=== PATIENT | female | born 1960 | race Caucasian/White ===

== ENCOUNTER 2016-10-18 18:04 | Emergency (ER) | payer OTHER ==
--- NOTE | 2016-10-18 19:47 | DIAGNOSTIC IMAGING REPORT ---
PROCEDURE: XR CHEST 2 VIEW INDICATION: FEVER, initial encounter TECHNIQUE: PA and lateral view. COMPARISON: None. FINDINGS: Poor inspiration with mild bilateral atelectasis Thickening of the minor fissure. Cardiovascular structures are normal. Bony thorax is unremarkable. IMPRESSION: 1. Poor inspiration with minor bilateral atelectasis 2. Thickened right minor fissure
--- NOTE | 2016-10-18 21:43 | ED ORDER SUMMARY ---
..... Patient: ALYX MENDEZ OrderSheet [facility] VisitID: [id number] [address] [place] [address] 56y, F Registration Date/Time: 10/18/2016 ORDER SHEET Weight: 81.6 kg (stated) Allergies: Penicillins GENERAL ORDERS: Chest 2V Urgent (19:13 10/18/2016 EKoroleva P.A.-C) (Ack 19:34 LTapper) (19:36 JRomanelli R.N.) Cardiac Panel Stat (19:13 10/18/2016 EKoroleva P.A.-C) (Ack 19:34 LTapper) (20:23 JRomanelli R.N.) PTT Urgent (19:13 10/18/2016 EKoroleva P.A.-C) (Ack 19:34 LTapper) (20:23 JRomanelli R.N.) PT with INR Urgent (19:13 10/18/2016 EKoroleva P.A.-C) (Ack 19:34 LTapper) (20:23 JRomanelli R.N.) Rapid Influenza Screen (Nasal Pharyngeal) (n) Urgent (19:13 10/18/2016 EKoroleva P.A.-C) (Ack 19:34 LTapper) (20:31 JRomanelli R.N.) Lost Charge Card Clerk (Continuous) (19:16 10/18/2016 EKoroleva P.A.-C) (19:36 JRomanelli R.N.) EKG - ER Stat (19:16 10/18/2016 EKoroleva P.A.-C) (Ack 19:34 LTapper) (20:15 AMcQuoid ER Tech1) D-Dimer Urgent (20:12 10/18/2016 EKoroleva P.A.-C) (Ack 20:16 LTapper) (20:23 JRomanelli R.N.) PCT (Procalcitonin) Urgent (21:51 10/18/2016 EKoroleva P.A.-C) (21:56 AMcQuoid ER Tech1) Lactate, Serum Urgent (21:52 10/18/2016 EKoroleva P.A.-C) (Ack 21:56 AMcQuoid ER Tech1) (22:05 AMcQuoid ER Tech1) Troponin-I Urgent (22:21 10/18/2016 EKoroleva P.A.-C) (22:33 AMcQuoid ER Tech1) MEDICATION ORDERS: Lovenox Subcut 80 mg (HIGH ALERT MEDICATION, NOW) (21:30 10/18/2016 EKoroleva P.A.-C) (Ack 22:20 SRoberts R.N.) (22:33 JRomanelli R.N.) - (tamiflu 75 mg po) (21:36 10/18/2016 EKoroleva P.A.-C) (Ack 22:20 SRoberts R.N.) (22:33 JRomanelli R.N.) IV FLUIDS: Morphine IV 4 mg (HIGH ALERT MEDICATION, NOW) (19:13 10/18/2016 EKoroleva P.A.-C) (20:32 JRomanelli R.N.) IV NS : initial bolus 1000 mL (1000 mL/hr), then 100 mL/hr for X1 (NOW); Jason (19:13 10/18/2016 EKoroleva P.A.-C) (20:23 JRomanelli R.N.) Morphine IV 4 mg (HIGH ALERT MEDICATION, NOW) (22:20 10/18/2016 EKoroleva P.A.-C) (23:12 JRomanelli R.N.) ORDER SHEET NOTES: [Electronically signed by Nydia Shaffer-C (23:04 10/18/2016)] [Electronically signed by Jason Joel R.N. (23:45 10/18/2016)] [Electronically locked/signed by Jason Joel R.N. (23:45 10/18/2016)]
--- NOTE | 2016-10-18 21:43 | ED NURSING NOTES ---
Clinical Report - Nurses [facility] [address] [place] [address] 10/18/2016 18:06 Patient: ALYX MENDEZ TRIAGE Triage time 19:Oct 18 2016. Acuity: LEVEL 3. Alert. KAMARI COMA SCORE: Kamari Coma Scale: 15- eyes open spontaneously (4); best verbal response- oriented x 4 (5); best motor response- obeys commands (6). --19:17 Jason Joel R.N. Chief Complaint: FEVER and CHILLS and ((L) Anterior Rib Pain). --19:17 Jason Joel R.N. 19:24 10/18/16. BP: 144/79. HR: 106. RR: 18. Temp: 99 F. Pain level now: 07/09. --19:25 Jason Joel R.N. 19:27 10/18/16. O2 saturation: 92% on room air. --19:28 Jason Joel R.N. Weight: 81.6 kg stated. Height/Length: 62 inches Per Patient. BMI: 32.9. --19:16 Jason Joel R.N. Medications Amitriptyline HCl Oral 25 mg, at bedtime. Aspirin Oral (Tablet Chewable 81 mg) 1 tablet, daily. FLUoxetine HCl Oral 40 mg, daily. Lyrica Oral 300 mg, 2 x daily. Metoprolol Succinate ER Oral 25 mg, daily. Nitroglycerin Translingual 0.4 mg, PRN. OxyCODONE HCl Oral 10 mg, as needed. Simvastatin Oral 40 mg, at bedtime. TiZANidine HCl Oral 4 mg. --19:20 Jason Joel R.N. Allergies Penicillins. --19:24 Jason Joel R.N. History Arrived by private vehicle. Historian: patient (son). Accompanied by family. ( Fever starting 4 days ago and she fell down stairs yesterday and is now having chest pain). --19:17 Jason Joel R.N. Onset. (about 2 days ago). Treatment REED PRESS FEEDER: None. --19:25 Jason Joel R.N. SOCIAL HX: Heavy tobacco smoker (cigarette)- less than 1 pack per day. No alcohol use or drug use. No recent travel. No infectious disease exposure. ABUSE ASSESSMENT: No report of abuse. FALL RISK ASSESSMENT: Fall risk assessment completed. No fall risk identified. NUTRITIONAL RISK ASSESSMENT: The nutritional risk assessment revealed no deficiencies. FUNCTIONAL ASSESSMENT: Functional assessment: no impairments noted. LEARNING NEEDS ASSESSMENT: The learning needs assessment revealed no barriers. SKIN INTEGRITY ASSESSMENT: Skin integrity risk assessment completed. No skin integrity risk identified. --19:27 Jason Joel R.N. ( Pt states that she has been passing out and falling.). --19:28 Jason Joel R.N. SOCIAL HX: Smoker- current status unknown. --22:26 Jason Joel R.N. [place] physician [place] --22:29 Jason Joel R.N. PROBLEMS: Coronary Stent . --22:21 Jason Joel R.N. Pneumonia. Myocardial Infarction. --22:26 Jason Joel R.N. Hypertension. Back Pain. --22:28 Jason Joel R.N. ADDITIONAL SURGERIES: Back Surgery. Carpal Tunnel Surgery. Cholecystectomy. Knee Surgery. Tonsillectomy. --22:28 Jason Joel R.N. Interventions ID band on patient. To treatment room. --19:17 Jason Joel R.N. PHYSICAL ASSESSMENT To room via wheelchair. GENERAL / NEURO / PSYCH: Alert. Oriented X 4. Appears in pain. HEENT: Mucous membranes are pink. CVS: Capillary refill less than 2 seconds. Pulses within normal limits. GI / : Abdomen soft and nontender. SKIN: Skin intact. Skin is warm and dry. Normal skin turgor. --19:26 Jason Joel R.N. NURSING PROGRESS NOTES Oxygen administered by nasal cannula at [address] recording monitor, pulse oximeter and NIBP monitor placed on patient; court recording monitor- Lead II and V1; monitor alarms on. --19:36 Jason Joel R.N. 20:06. EKG was performed by a tech. --20:15 McQuoid, Krystal, ER Tech1 19:30 10/18/16. Patient gowned. Reassurance given. Patient identifiers checked. Call light placed in reach. Side rails up x 2. Bed placed in lowest position. Brakes of bed on. Patient ready for evaluation- chart flagged and ED physician notified. --20:46 Jason Joel R.N. 19:57 10/18/2016 Site #1 started via IV in the left forearm with an 22g angiocath, with aseptic technique and good blood return; one attempt. Blood drawn: rainbow set. Labeled in the presence of the patient and sent to the lab. Saline lock flushed with 10 mL saline. --20:22 Jason Joel R.N. 19:57 10/18/2016 Started bag #1 1000 mL IV Fluids IV NS (Saline); at 1000 mL/hr over 60 minute(s) via site #1 via IV pump. Allergies verified and confirmed 5 rights. IV patency established. IV site checked: no pain, redness, or swelling. IV flushed thoroughly pre- and post-medication administration. --20:23 Jason Joel R.N. 20:22 10/18/2016 Morphine IVP 4 mg given over 2 minute(s) via site #1. Allergies verified, confirmed 5 rights and sedative warning given to the patient. IV patency established. IV site checked: no pain, redness, or swelling. IV flushed thoroughly pre- and post-medication administration. IVP given by RN. --20:32 Jason Joel R.N. 20:46 10/18/16. BP: 136/74. HR: 94. RR: 19. O2 saturation: 96% on nasal cannula at 2 liters/minute. --20:48 Jason Joel R.N. 20:53 10/18/2016 IV Fluids IV NS Bag Change: bag #1 infused. Total amount infused: 1000. STARTED bag #2 (1000 mL) at 100 mL/hr via IV pump. Confirmed 5 rights. IV patency established. IV site checked: no pain, redness, or swelling. IV flushed thoroughly. --20:53 Jason Joel R.N. 21:42 10/18/16. O2 saturation: 88% on room air. --21:42 Jason Joel R.N. 22:23 10/18/2016 Tamiflu * PO 75 mg --22:33 Jason Joel R.N. 22:28 10/18/2016 Lovenox * Subcutaneous 81mg --22:33 Jason Joel R.N. 23:05 10/18/2016 Morphine IVP 4 mg given over 2 minute(s) via site #1. Allergies verified, confirmed 5 rights and sedative warning given to the patient. IV patency established. IV site checked: no pain, redness, or swelling. IV flushed thoroughly pre- and post-medication administration. IVP given by RN. --23:12 Jason Joel R.N. 21:45 10/18/16. BP: 124/66. HR: 94. RR: 17. O2 saturation: 97% on nasal cannula at 2 liters/minute. Pain level now: 02/06. --23:37 Jason Joel R.N. 22:15 10/18/16. BP: 156/77. HR: 91. RR: 18. O2 saturation: 97% on room air. Pain level now: 05/09. --23:38 Jason Joel R.N. 22:30 10/18/16. BP: 141/80. HR: 93. RR: 19. O2 saturation: 98%. Pain level now: 05/09. --23:40 Jason Joel R.N. 23:00 10/18/2016 Site #[address] upon transfer; patent, no pain and no signs of infection or infiltration; flushes easily. --23:44 Jason Joel R.N. 23:00 10/18/2016 IV Fluids IV NS Continued: upon transfer at the rate of 100 mL/hr. 800 mL remaining bag #2. IV patency established. IV site checked: no pain, redness, or swelling. IV flushed thoroughly. --23:42 Jason Joel R.N. DISPOSITION / DISCHARGE 23:00 10/18/16. BP: 151/95. HR: 95 (regular). RR: 18. O2 saturation: 99% on nasal cannula at 2 liters/minute. Temp: 99.3 F (oral). Pain level now: 02/06. Additional comments: (L) Rib Pain. --23:31 Jason Joel R.N. Departure time: 2300. --23:31 Jason Joel R.N. 23:00. No learning barriers present. Reviewed medication(s) (reviewed with EMS). Transferred to [facility]. Transported via ambulance by transport team with IV and O2. Report was given to a nurse via a phone call. Report included patient's care, treatment, medications, reviewed medication reconcilliation, and condition (including any recent changes or anticipated changes). All questions were answered. Report was acknowledged and care was transferred. (SHWETA Maddox). Patient's personal items; items were placed in belongings bag and transported with the patient. --23:34 Jason Joel R.N. Locked/Released at 10/18/2016 23:45 by Jason Joel R.N.
--- NOTE | 2016-10-18 21:43 | ED CLINICAL REPORT ---
Clinical Report - Physicians/Mid Levels [facility] [address] [place] [address] 10/18/2016 18:06 Patient: ALYX MENDEZ Time Seen: 1912. Arrived- By private vehicle. Historian- patient. HISTORY OF PRESENT ILLNESS Chief Complaint: COUGH and FEVER. This started 4days and is still present. The illness is described as moderate. The patient has had sputum production, a cough, difficulty breathing, chills and muscle aches. She has had chest pain. Additional history - The patient has had contact with a sick individual. (Patient reports he was cough over the last 4 days, is weak, lightheadedness and dizzy upon standing. Patient reports falling over the last few days, fell yesterday onto her chest, down stairs. sHe denies loss of consciousness. Reports has had near syncope episodes. Patient reports history of LA, stent placed about 2-3 years ago Reports sick contact her . Also here in the emergency department.). REVIEW OF SYSTEMS No headache, vomiting, diarrhea, hay fever or pedal edema. No calf pain, skin rash or joint pain. All systems otherwise negative, except as recorded above. PAST HISTORY Chronic Back pain. Problems: Hypertension. Back Pain. Pneumonia. Myocardial Infarction. Coronary Stent . Additional Surgeries: Back Surgery. Carpal Tunnel Surgery. Cholecystectomy. Knee Surgery. Tonsillectomy. Medications: Amitriptyline HCl Oral 25 mg, at bedtime. Aspirin Oral (Tablet Chewable 81 mg) 1 tablet, daily. FLUoxetine HCl Oral 40 mg, daily. Lyrica Oral 300 mg, 2 x daily. Metoprolol Succinate ER Oral 25 mg, daily. Nitroglycerin Translingual 0.4 mg, PRN. OxyCODONE HCl Oral 10 mg, as needed. Simvastatin Oral 40 mg, at bedtime. TiZANidine HCl Oral 4 mg. Allergies: Penicillins. SOCIAL HISTORY Smoker- current status unknown. No alcohol use or drug use. ADDITIONAL NOTES The nursing notes have been reviewed. PHYSICAL EXAM Vital Signs: 10/18/2016 19:27 O2 saturation: 92%. 10/18/2016 19:24 BP: 144/79. HR: 106. RR: 18. Temp: 99 F. Pain level now: 07/09. Appearance: Alert. Anxious. Appears to be in pain. Patient in apparent distress. ENT: Nose normal. Pharynx normal. Uvula midline. Neck: Normal inspection. CVS: Tachycardia. Heart sounds normal. Pulses normal. Respiratory: No respiratory distress. Breath sounds normal. No retractions, splinting or wheezes. anterior left chest tendernss, no ecchymosis. Abdomen: Soft. Back: Normal inspection. No CVA tenderness. Skin: Skin warm. Normal skin color. No rash. Neuro: Oriented X 3. No motor deficit. No sensory deficit. LABS, X-RAYS, AND EKG EKG: EKG time: (2005). No acute process. No acute ischemia. Rate: 99. Normal P waves. Normal DOROTHEA. Normal QRS complex. Normal axis. Normal ST and T waves and QT. The study has been interpreted contemporaneously. The EKG appears to be a good tracing. Chest X-ray: (IMPRESSION: 1. Poor inspiration with minor bilateral atelectasis 2. Thickened right minor fissure Electronically Final signed by:Adam Lozada MD 10/18/2016 7:47:29 PM). Laboratory Tests: CBC w Diff: (BRIAN: 10/18/2016 19:35) ( MsgRcvd 10/18/2016 19:57) Final results Test Result Flag Units (Reference) WHITE BLOOD COUNT 6.8 K/uL (4.5-11.5) RED BLOOD COUNT 3.96 L M/uL (4.00-5.20) HEMOGLOBIN 11.9 L gm/dL (12.0-16.0) HEMATOCRIT 36.2 % (36.0-46.0) MEAN CELL VOLUME 92 fL (80-100) MEAN CORPUSCULAR HGB 30 pg (26-34) MEAN CORPUSCULAR HGB CONC 33 g/dL (31-37) RED CELL DISTRIBUTION WIDTH 12.3 % (11.6-14.8) PLATELET COUNT 198 K/uL (150-400) NEUTROPHIL % 63.8 % (50-75) LYMPH % 21.3 L % (25-40) MONO % 14.4 H % (3-14) EOSINOPHIL % 0 % (0-4) BASOPHIL % 0.5 % (0-2) [id number]: (BRIAN: 10/18/2016 20:15) ( [facility] 10/18/2016 20:50) Final results Test Result Flag Units (Reference) D-DIMER QUANTITATIVE 8.86 *H ug/mLFEU (0.27-0.52) CRITICAL RESULTS CALLEDCalled to Lance MONIQUE 10/18/162048Were 2 patient identifiers used? YWas the result read back? YThe primary value of this quantitative assay relates toits negative predictive value (i.e. exclusion) of pulmonaryembolism/deep vein thrombosis/DIC.Elevated levels of d-dimer may also occur with:, age, cancer, inflammation, liver disease,post-op, infection, hematoma, coronary disease, peripheralarteriopathy, bleeding disorders and thrombolytic treatment.Results should be correlated with other clinical andradiological data.Testing Methodology: Latex Immunoassay PT with INR: (BRIAN: 10/18/2016 19:35) ( [facility] 10/18/2016 20:11) Final results Test Result Flag Units (Reference) INR 0.9 (0.8-1.2) Low Intensity Therapy: INR 1.5-2.0 PT range 18.5-23.1Mod.Intensity Therapy: INR 2.0-3.0 PT range 23.1-31.5High Intensity Therapy: INR 2.5-3.5 PT range 27.4-35.5High Intensity Therapy 2: INR 3.0-4.0 PT range 31.5-39.3 APTT 30 SECONDS (24-34) Troponin-I: (BRIAN: 10/18/2016 22:00) ( [facility] 10/18/2016 22:40) Final results Test Result Flag Units (Reference) TROPONIN I 0.10 ng/mL (0.00-1.5) TROPONIN REFERENCE RANGE:<0.1 NEGATIVE0.1-1.5 INDETERMINANT>1.5 POSITIVE Lactate, Serum: (BRIAN: 10/18/2016 22:00) ( MsgRcvd 10/18/2016 22:35) Final results Test Result Flag Units (Reference) LACTIC ACID 0.7 mmol/L (0.4-2.0) CHEM 13 PANEL: (BRIAN: 10/18/2016 19:35) ( MsgRcvd 10/18/2016 20:53) Final results Test Result Flag Units (Reference) GLUCOSE 130 H mg/dL (70-110) BUN 31 H mg/dL (7-18) CREATININE 2.1 H mg/dL (0.6-1.3) Estimated GFR 25.89 mL/min Estimated GFR- 31.38 mL/min Note: Persistent reduction over 3 months in eGFR<60 mL/min/1.73 m2 defines CKD. Patients with eGFR values>=60 mL/min/1.73 m2 may also have CKD if evidence ofpersistent proteinuria. Additional information may be foundat www.kidney.org. SODIUM 135 L mmol/L (136-145) POTASSIUM 4.2 mmol/L (3.5-5.1) CHLORIDE 97 L mmol/L (98-107) CARBON DIOXIDE 26 mmol/L (21-32) CALCIUM 8.4 L mg/dL (8.5-10.1) TOTAL PROTEIN 7.1 g/dL (6.4-8.2) ALBUMIN 3.5 g/dL (3.3-5.0) BILIRUBIN, TOTAL 0.3 mg/dL (0.0-1.0) ALKALINE PHOSPHATASE 63 U/L (46-116) AST (SGOT) 44 H U/L (15-37) ALT (SGPT) 29 U/L (12-78) CPK 376 H U/L (24-260) MAGNESIUM 2.0 mg/dL (1.8-2.4) TROPONIN I 0.11 ng/mL (0.00-1.5) TROPONIN REFERENCE RANGE:<0.1 NEGATIVE0.1-1.5 INDETERMINANT>1.5 POSITIVE CK-MB 1.6 ng/mL (0.5-3.2) %CKMB 0.4 % (0.0-4.0) Rapid Influenza Screen: (BRIAN: 10/18/2016 20:20) ( MsgRcvd 10/18/2016 21:09) Final results SPECIMEN DESCRIPTION: N Test Result Flag Units (Reference) RAPID INFLUENZA SCREEN CALLED TO: DAVIN -- DATE: 10/18/16 INFLUENZA A: POSITIVE SCREEN FOR INFLUENZA A INFLUENZA B: NEGATIVE SCREEN FOR INFLUENZA B . PROGRESS AND PROCEDURES Course of Care: 88% RA at 21:[address] Cortez, ER, who recommends admission. Discussed case with hospitalist, who reports note telemetry bed, and we'll attempt to find placement otherwise. Lovenox 2 patient, as elevated d-dimer, and O2 saturation 88% on room air. 95% on 2 L. Positive influenza for patient as well. Chest x-ray otherwise unremarkable. Indeterminate first troponin 0.11, with no EKG changes, patient with second troponin that is 0.1. Discussed case with DR. [facility], who accepts pt for admisison. 10/18/2016 21:42 O2 saturation: 88%. 10/18/2016 20:46 BP: 136/74. HR: 94. RR: 19. O2 saturation: 96%. Patient is stable. Physical exam findings are improved. Symptoms better. Patient/family counseled. Disposition: Transferred. CLINICAL IMPRESSION Hypertension. Influenza Acute Renal Failure Elevated D. Dimer Dehydration Chest Wall contusion Chronic Low Back Pain. (Electronically signed by Nydia Shaffer P.A.-C 10/18/2016 23:04)
--- NOTE | 2016-10-18 21:43 | ED NURSING NOTES ---
Clinical Report - Nurses [facility] [address] [place] [address] 10/18/2016 18:06 Patient: ALYX MENDEZ TRIAGE Triage time 19:Oct 18 2016. Acuity: LEVEL 3. Alert. KAMARI COMA SCORE: Kamari Coma Scale: 15- eyes open spontaneously (4); best verbal response- oriented x 4 (5); best motor response- obeys commands (6). --19:17 Jason Joel R.N. Chief Complaint: FEVER and CHILLS and ((L) Anterior Rib Pain). --19:17 Jason Joel R.N. 19:24 10/18/16. BP: 144/79. HR: 106. RR: 18. Temp: 99 F. Pain level now: 07/09. --19:25 Jason Joel R.N. 19:27 10/18/16. O2 saturation: 92% on room air. --19:28 Jason Joel R.N. Weight: 81.6 kg stated. Height/Length: 62 inches Per Patient. BMI: 32.9. --19:16 Jason Joel R.N. Medications Amitriptyline HCl Oral 25 mg, at bedtime. Aspirin Oral (Tablet Chewable 81 mg) 1 tablet, daily. FLUoxetine HCl Oral 40 mg, daily. Lyrica Oral 300 mg, 2 x daily. Metoprolol Succinate ER Oral 25 mg, daily. Nitroglycerin Translingual 0.4 mg, PRN. OxyCODONE HCl Oral 10 mg, as needed. Simvastatin Oral 40 mg, at bedtime. TiZANidine HCl Oral 4 mg. --19:20 Jason Joel R.N. Allergies Penicillins. --19:24 Jason Joel R.N. History Arrived by private vehicle. Historian: patient (son). Accompanied by family. ( Fever starting 4 days ago and she fell down stairs yesterday and is now having chest pain). --19:17 Jason Joel R.N. Onset. (about 2 days ago). 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 --19:25 Jason Joel R.N. SOCIAL HX: Heavy tobacco smoker (cigarette)- less than 1 pack per day. No alcohol use or drug use. No recent travel. No infectious disease exposure. ABUSE ASSESSMENT: No report of abuse. FALL RISK ASSESSMENT: Fall risk assessment completed. No fall risk identified. NUTRITIONAL RISK ASSESSMENT: The nutritional risk assessment revealed no deficiencies. FUNCTIONAL ASSESSMENT: Functional assessment: no impairments noted. LEARNING NEEDS ASSESSMENT: The learning needs assessment revealed no barriers. SKIN INTEGRITY ASSESSMENT: Skin integrity risk assessment completed. No skin integrity risk identified. --19:27 Jason Joel R.N. ( Pt states that she has been passing out and falling.). --19:28 Jason Joel R.N. SOCIAL HX: Smoker- current status unknown. --22:26 Jason Joel R.N. Primary physician ([place] --22:29 Jason Joel R.N. PROBLEMS: Coronary Stent . --22:21 Jason Joel R.N. Pneumonia. Myocardial Infarction. --22:26 Jason Joel R.N. Hypertension. Back Pain. --22:28 Jason Joel R.N. ADDITIONAL SURGERIES: Back Surgery. Carpal Tunnel Surgery. Cholecystectomy. Knee Surgery. Tonsillectomy. --22:28 Jason Joel R.N. Interventions ID band on patient. To treatment room. --19:17 Jason Joel R.N. PHYSICAL ASSESSMENT To room via wheelchair. GENERAL / NEURO / PSYCH: Alert. Oriented X 4. Appears in pain. HEENT: Mucous membranes are pink. CVS: Capillary refill less than 2 seconds. Pulses within normal limits. GI / : Abdomen soft and nontender. SKIN: Skin intact. Skin is warm and dry. Normal skin turgor. --19:26 Jason Joel R.N. NURSING PROGRESS NOTES Oxygen administered by nasal cannula at 2 liters. engine monitor, pulse oximeter and NIBP monitor placed on patient; cardiac specialist- Lead II and V1; monitor alarms on. --19:36 Jason Joel R.N. 20:06. EKG was performed by a tech. --20:15 McQuoid, Krystal, ER Tech1 19:30 10/18/16. Patient gowned. Reassurance given. Patient identifiers checked. Call light placed in reach. Side rails up x 2. Bed placed in lowest position. Brakes of bed on. Patient ready for evaluation- chart flagged and ED physician notified. --20:46 Jason Joel R.N. 19:57 10/18/2016 Site #1 started via IV in the left forearm with an 22g angiocath, with aseptic technique and good blood return; one attempt. Blood drawn: rainbow set. Labeled in the presence of the patient and sent to the lab. Saline lock flushed with 10 mL saline. --20:22 Jason Joel R.N. 19:57 10/18/2016 Started bag #1 1000 mL IV Fluids IV NS (Saline); at 1000 mL/hr over 60 minute(s) via site #1 via IV pump. Allergies verified and confirmed 5 rights. IV patency established. IV site checked: no pain, redness, or swelling. IV flushed thoroughly pre- and post-medication administration. --20:23 Jason Joel R.N. 20:22 10/18/2016 Morphine IVP 4 mg given over 2 minute(s) via site #1. Allergies verified, confirmed 5 rights and sedative warning given to the patient. IV patency established. IV site checked: no pain, redness, or swelling. IV flushed thoroughly pre- and post-medication administration. IVP given by RN. --20:32 Jason Joel R.N. 20:46 10/18/16. BP: 136/74. HR: 94. RR: 19. O2 saturation: 96% on nasal cannula at 2 liters/minute. --20:48 Jason Joel R.N. 20:53 10/18/2016 IV Fluids IV NS Bag Change: bag #1 infused. Total amount infused: 1000. STARTED bag #2 (1000 mL) at 100 mL/hr via IV pump. Confirmed 5 rights. IV patency established. IV site checked: no pain, redness, or swelling. IV flushed thoroughly. --20:53 Jason Joel R.N. 21:42 10/18/16. O2 saturation: 88% on room air. --21:42 Jason Joel R.N. 22:23 10/18/2016 Tamiflu * PO 75 mg --22:33 Jason oJel R.N. 22:28 10/18/2016 Lovenox * Subcutaneous 81mg --22:33 Jason Joel R.N. 23:05 10/18/2016 Morphine IVP 4 mg given over 2 minute(s) via site #1. Allergies verified, confirmed 5 rights and sedative warning given to the patient. IV patency established. IV site checked: no pain, redness, or swelling. IV flushed thoroughly pre- and post-medication administration. IVP given by RN. --23:12 Jason Joel R.N. 21:45 10/18/16. BP: 124/66. HR: 94. RR: 17. O2 saturation: 97% on nasal cannula at 2 liters/minute. Pain level now: 02/06. --23:37 Jason Joel R.N. 22:15 10/18/16. BP: 156/77. HR: 91. RR: 18. O2 saturation: 97% on room air. Pain level now: 05/09. --23:38 Jason Joel R.N. 22:30 10/18/16. BP: 141/80. HR: 93. RR: 19. O2 saturation: 98%. Pain level now: 05/09. --23:40 Jason Joel R.N. 23:00 10/18/2016 Site #[address] upon transfer; patent, no pain and no signs of infection or infiltration; flushes easily. --23:44 Jason Joel R.N. 23:00 10/18/2016 IV Fluids IV NS Continued: upon transfer at the rate of 100 mL/hr. 800 mL remaining bag #2. IV patency established. IV site checked: no pain, redness, or swelling. IV flushed thoroughly. --23:42 Jason Joel R.N. DISPOSITION / DISCHARGE 23:00 10/18/16. BP: 151/95. HR: 95 (regular). RR: 18. O2 saturation: 99% on nasal cannula at 2 liters/minute. Temp: 99.3 F (oral). Pain level now: 02/06. Additional comments: (L) Rib Pain. --23:31 Jason Joel R.N. Departure time: 2300. --23:31 Jason Joel R.N. 23:00. No learning barriers present. Reviewed medication(s) (reviewed with EMS). Transferred to [facility]. Transported via ambulance by transport team with IV and O2. Report was given to a nurse via a phone call. Report included patient's care, treatment, medications, reviewed medication reconcilliation, and condition (including any recent changes or anticipated changes). All questions were answered. Report was acknowledged and care was transferred. (SHWETA Maddox). Patient's personal items; items were placed in belongings bag and transported with the patient. --23:34 Jason Joel R.N. Locked/Released at 10/18/2016 23:45 by Jason Joel R.N.
--- NOTE | 2016-10-18 21:43 | ED ORDER SUMMARY ---
..... Patient: ALYX MENDEZ OrderSheet [facility] VisitID: [id number] [address] [place] [address] 56y, F Registration Date/Time: 10/18/2016 ORDER SHEET Weight: 81.6 kg (stated) Allergies: Penicillins GENERAL ORDERS: Chest 2V Urgent (19:13 10/18/2016 EKoroleva P.A.-C) (Ack 19:34 LTapper) (19:36 JRomanelli R.N.) Cardiac Panel Stat (19:13 10/18/2016 EKoroleva P.A.-C) (Ack 19:34 LTapper) (20:23 JRomanelli R.N.) PTT Urgent (19:13 10/18/2016 EKoroleva P.A.-C) (Ack 19:34 LTapper) (20:23 JRomanelli R.N.) PT with INR Urgent (19:13 10/18/2016 EKoroleva P.A.-C) (Ack 19:34 LTapper) (20:23 JRomanelli R.N.) Rapid Influenza Screen (Nasal Pharyngeal) (n) Urgent (19:13 10/18/2016 EKoroleva P.A.-C) (Ack 19:34 LTapper) (20:31 JRomanelli R.N.) Yarn Mercerizer Operator (Continuous) (19:16 10/18/2016 EKoroleva P.A.-C) (19:36 JRomanelli R.N.) EKG - ER Stat (19:16 10/18/2016 EKoroleva P.A.-C) (Ack 19:34 LTapper) (20:15 AMcQuoid ER Tech1) D-Dimer Urgent (20:12 10/18/2016 EKoroleva P.A.-C) (Ack 20:16 LTapper) (20:23 JRomanelli R.N.) PCT (Procalcitonin) Urgent (21:51 10/18/2016 EKoroleva P.A.-C) (21:56 AMcQuoid ER Tech1) Lactate, Serum Urgent (21:52 10/18/2016 EKoroleva P.A.-C) (Ack 21:56 AMcQuoid ER Tech1) (22:05 AMcQuoid ER Tech1) Troponin-I Urgent (22:21 10/18/2016 EKoroleva P.A.-C) (22:33 AMcQuoid ER Tech1) MEDICATION ORDERS: Lovenox Subcut 80 mg (HIGH ALERT MEDICATION, NOW) (21:30 10/18/2016 EKoroleva P.A.-C) (Ack 22:20 SRoberts R.N.) (22:33 JRomanelli R.N.) - (tamiflu 75 mg po) (21:36 10/18/2016 EKoroleva P.A.-C) (Ack 22:20 SRoberts R.N.) (22:33 JRomanelli R.N.) IV FLUIDS: Morphine IV 4 mg (HIGH ALERT MEDICATION, NOW) (19:13 10/18/2016 EKoroleva P.A.-C) (20:32 JRomanelli R.N.) IV NS : initial bolus 1000 mL (1000 mL/hr), then 100 mL/hr for X1 (NOW); Jason (19:13 10/18/2016 EKoroleva P.A.-C) (20:23 JRomanelli R.N.) Morphine IV 4 mg (HIGH ALERT MEDICATION, NOW) (22:20 10/18/2016 EKoroleva P.A.-C) (23:12 JRomanelli R.N.) ORDER SHEET NOTES: [Electronically signed by Nydia Shaffer-C (23:04 10/18/2016)] [Electronically signed by Jason Joel R.N. (23:45 10/18/2016)] [Electronically locked/signed by Jason Joel R.N. (23:45 10/18/2016)]
--- NOTE | 2016-10-18 21:43 | ED CLINICAL REPORT ---
Clinical Report - Physicians/Mid Levels [facility] [address] [place] [address] 10/18/2016 18:06 Patient: ALYX MENDEZ Time Seen: 1912. Arrived- By private vehicle. Historian- patient. HISTORY OF PRESENT ILLNESS Chief Complaint: COUGH and FEVER. This started 4days and is still present. The illness is described as moderate. The patient has had sputum production, a cough, difficulty breathing, chills and muscle aches. She has had chest pain. Additional history - The patient has had contact with a sick individual. (Patient reports he was cough over the last 4 days, is weak, lightheadedness and dizzy upon standing. Patient reports falling over the last few days, fell yesterday onto her chest, down stairs. sHe denies loss of consciousness. Reports has had near syncope episodes. Patient reports history of MA, stent placed about 2-3 years ago Reports sick contact her . Also here in the emergency department.). REVIEW OF SYSTEMS No headache, vomiting, diarrhea, hay fever or pedal edema. No calf pain, skin rash or joint pain. All systems otherwise negative, except as recorded above. PAST HISTORY Chronic Back pain. Problems: Hypertension. Back Pain. Pneumonia. Myocardial Infarction. Coronary Stent . Additional Surgeries: Back Surgery. Carpal Tunnel Surgery. Cholecystectomy. Knee Surgery. Tonsillectomy. Medications: Amitriptyline HCl Oral 25 mg, at bedtime. Aspirin Oral (Tablet Chewable 81 mg) 1 tablet, daily. FLUoxetine HCl Oral 40 mg, daily. Lyrica Oral 300 mg, 2 x daily. Metoprolol Succinate ER Oral 25 mg, daily. Nitroglycerin Translingual 0.4 mg, PRN. OxyCODONE HCl Oral 10 mg, as needed. Simvastatin Oral 40 mg, at bedtime. TiZANidine HCl Oral 4 mg. Allergies: Penicillins. SOCIAL HISTORY Smoker- current status unknown. No alcohol use or drug use. ADDITIONAL NOTES The nursing notes have been reviewed. PHYSICAL EXAM Vital Signs: 10/18/2016 19:27 O2 saturation: 92%. 10/18/2016 19:24 BP: 144/79. HR: 106. RR: 18. Temp: 99 F. Pain level now: 07/09. Appearance: Alert. Anxious. Appears to be in pain. Patient in apparent distress. ENT: Nose normal. Pharynx normal. Uvula midline. Neck: Normal inspection. CVS: Tachycardia. Heart sounds normal. Pulses normal. Respiratory: No respiratory distress. Breath sounds normal. No retractions, splinting or wheezes. anterior left chest tendernss, no ecchymosis. Abdomen: Soft. Back: Normal inspection. No CVA tenderness. Skin: Skin warm. Normal skin color. No rash. Neuro: Oriented X 3. No motor deficit. No sensory deficit. LABS, X-RAYS, AND EKG EKG: EKG time: (2005). No acute process. No acute ischemia. Rate: 99. Normal P waves. Normal DOROTHEA. Normal QRS complex. Normal axis. Normal ST and T waves and QT. The study has been interpreted contemporaneously. The EKG appears to be a good tracing. Chest X-ray: (IMPRESSION: 1. Poor inspiration with minor bilateral atelectasis 2. Thickened right minor fissure Electronically Final signed by:Adam Lozada MD 10/18/2016 7:47:29 PM). Laboratory Tests: CBC w Diff: (BRIAN: 10/18/2016 19:35) ( MsgRcvd 10/18/2016 19:57) Final results Test Result Flag Units (Reference) WHITE BLOOD COUNT 6.8 K/uL (4.5-11.5) RED BLOOD COUNT 3.96 L M/uL (4.00-5.20) HEMOGLOBIN 11.9 L gm/dL (12.0-16.0) HEMATOCRIT 36.2 % (36.0-46.0) MEAN CELL VOLUME 92 fL (80-100) MEAN CORPUSCULAR HGB 30 pg (26-34) MEAN CORPUSCULAR HGB CONC 33 g/dL (31-37) RED CELL DISTRIBUTION WIDTH 12.3 % (11.6-14.8) PLATELET COUNT 198 K/uL (150-400) NEUTROPHIL % 63.8 % (50-75) LYMPH % 21.3 L % (25-40) MONO % 14.4 H % (3-14) EOSINOPHIL % 0 % (0-4) BASOPHIL % 0.5 % (0-2) [id number]: (BRIAN: 10/18/2016 20:15) ( [facility] 10/18/2016 20:50) Final results Test Result Flag Units (Reference) D-DIMER QUANTITATIVE 8.86 *H ug/mLFEU (0.27-0.52) CRITICAL RESULTS CALLEDCalled to Lance MONIQUE 10/18/162048Were 2 patient identifiers used? YWas the result read back? YThe primary value of this quantitative assay relates toits negative predictive value (i.e. exclusion) of pulmonaryembolism/deep vein thrombosis/DIC.Elevated levels of d-dimer may also occur with:, age, cancer, inflammation, liver disease,post-op, infection, hematoma, coronary disease, peripheralarteriopathy, bleeding disorders and thrombolytic treatment.Results should be correlated with other clinical andradiological data.Testing Methodology: Latex Immunoassay PT with INR: (BRIAN: 10/18/2016 19:35) ( [facility] 10/18/2016 20:11) Final results Test Result Flag Units (Reference) INR 0.9 (0.8-1.2) Low Intensity Therapy: INR 1.5-2.0 PT range 18.5-23.1Mod.Intensity Therapy: INR 2.0-3.0 PT range 23.1-31.5High Intensity Therapy: INR 2.5-3.5 PT range 27.4-35.5High Intensity Therapy 2: INR 3.0-4.0 PT range 31.5-39.3 APTT 30 SECONDS (24-34) Troponin-I: (BRIAN: 10/18/2016 22:00) ( [facility] 10/18/2016 22:40) Final results Test Result Flag Units (Reference) TROPONIN I 0.10 ng/mL (0.00-1.5) TROPONIN REFERENCE RANGE:<0.1 NEGATIVE0.1-1.5 INDETERMINANT>1.5 POSITIVE Lactate, Serum: (BRIAN: 10/18/2016 22:00) ( MsgRcvd 10/18/2016 22:35) Final results Test Result Flag Units (Reference) LACTIC ACID 0.7 mmol/L (0.4-2.0) CHEM 13 PANEL: (BRIAN: 10/18/2016 19:35) ( MsgRcvd 10/18/2016 20:53) Final results Test Result Flag Units (Reference) GLUCOSE 130 H mg/dL (70-110) BUN 31 H mg/dL (7-18) CREATININE 2.1 H mg/dL (0.6-1.3) Estimated GFR 25.89 mL/min Estimated GFR- 31.38 mL/min Note: Persistent reduction over 3 months in eGFR<60 mL/min/1.73 m2 defines CKD. Patients with eGFR values>=60 mL/min/1.73 m2 may also have CKD if evidence ofpersistent proteinuria. Additional information may be foundat www.kidney.org. SODIUM 135 L mmol/L (136-145) POTASSIUM 4.2 mmol/L (3.5-5.1) CHLORIDE 97 L mmol/L (98-107) CARBON DIOXIDE 26 mmol/L (21-32) CALCIUM 8.4 L mg/dL (8.5-10.1) TOTAL PROTEIN 7.1 g/dL (6.4-8.2) ALBUMIN 3.5 g/dL (3.3-5.0) BILIRUBIN, TOTAL 0.3 mg/dL (0.0-1.0) ALKALINE PHOSPHATASE 63 U/L (46-116) AST (SGOT) 44 H U/L (15-37) ALT (SGPT) 29 U/L (12-78) CPK 376 H U/L (24-260) MAGNESIUM 2.0 mg/dL (1.8-2.4) TROPONIN I 0.11 ng/mL (0.00-1.5) TROPONIN REFERENCE RANGE:<0.1 NEGATIVE0.1-1.5 INDETERMINANT>1.5 POSITIVE CK-MB 1.6 ng/mL (0.5-3.2) %CKMB 0.4 % (0.0-4.0) Rapid Influenza Screen: (BRIAN: 10/18/2016 20:20) ( MsgRcvd 10/18/2016 21:09) Final results SPECIMEN DESCRIPTION: N Test Result Flag Units (Reference) RAPID INFLUENZA SCREEN CALLED TO: DAVIN -- DATE: 10/18/16 INFLUENZA A: POSITIVE SCREEN FOR INFLUENZA A INFLUENZA B: NEGATIVE SCREEN FOR INFLUENZA B . PROGRESS AND PROCEDURES Course of Care: 88% RA at 21:[address] Cortez, ER, who recommends admission. Discussed case with hospitalist, who reports note telemetry bed, and we'll attempt to find placement otherwise. Lovenox 2 patient, as elevated d-dimer, and O2 saturation 88% on room air. 95% on 2 L. Positive influenza for patient as well. Chest x-ray otherwise unremarkable. Indeterminate first troponin 0.11, with no EKG changes, patient with second troponin that is 0.1. Discussed case with DR. Hyde [facility], who accepts pt for admisison. 10/18/2016 21:42 O2 saturation: 88%. 10/18/2016 20:46 BP: 136/74. HR: 94. RR: 19. O2 saturation: 96%. Patient is stable. Physical exam findings are improved. Symptoms better. Patient/family counseled. Disposition: Transferred. CLINICAL IMPRESSION Hypertension. Influenza Acute Renal Failure Elevated D. Dimer Dehydration Chest Wall contusion Chronic Low Back Pain. (Electronically signed by Nydia Shaffer P.A.-C 10/18/2016 23:04)
--- NOTE | 2016-10-18 23:45 | ED DISCHARGE INSTRUCTIONS ---
Patient: ALYX MENDEZ General Instructions [facility] VisitID: [id number] [address] [place] [address] 56y, F Registration Date/Time: 10/18/2016 Hypertension. Influenza Acute Renal Failure Elevated D. Dimer Dehydration Chest Wall contusion Chronic Low Back Pain. (Electronically signed by Nydia Shaffer P.A.-C 10/18/2016 23:04)
--- NOTE | 2016-10-18 23:45 | ED DISCHARGE INSTRUCTIONS ---
Patient: ALYX MENDEZ General Instructions [facility] VisitID: [id number] [address] [place] [address] 56y, F Registration Date/Time: 10/18/2016 Hypertension. Influenza Acute Renal Failure Elevated D. Dimer Dehydration Chest Wall contusion Chronic Low Back Pain. (Electronically signed by Nydia Shaffer P.A.-C 10/18/2016 23:04)
--- NOTE | 2016-10-18 23:45 | ED MED RECONCILIATION SUMMARY ---
Patient: ALYX MENDEZ Medication Reconciliation Report [facility] VisitID: [id number] [address] [place] [address] 56y, F Registration Date/Time: 10/18/2016 Weight: 81.6 kg Height/Length: 62 in. BMI: 32.9 ALLERGIES: Penicillins The patient's Home Medications are listed below: THE FOLLOWING MEDICATIONS NEED TO BE RECONCILED: Amitriptyline HCl Oral 25 mg, at bedtime Aspirin Oral (81 mg) 1 tablet, daily FLUoxetine HCl Oral 40 mg, daily Lyrica Oral 300 mg, 2 x daily Metoprolol Succinate ER Oral 25 mg, daily Nitroglycerin Translingual 0.4 mg, PRN OxyCODONE HCl Oral 10 mg Simvastatin Oral 40 mg, at bedtime TiZANidine HCl Oral 4 mg The source(s) of the original Home Medication information: Not obtained. The following Medications were given to the patient in the Emergency Department: IV NS IV Fluids bolus 0, then 1000 mL/hr, administered: 10/18/2016 7:57:00 PM Morphine [IVP] IVP 4 mg, administered: 10/18/2016 8:22:00 PM Tamiflu PO 75 mg, administered: 10/18/2016 10:23:00 PM Lovenox Subcutaneous 81mg, administered: 10/18/2016 10:28:00 PM Morphine [IVP] IVP 4 mg, administered: 10/18/2016 11:05:00 PM The following Medications were prescribed to the patient: None.
--- NOTE | 2016-10-18 23:45 | ED MAR SUMMARY ---
..... Medication Administration Record [facility] [address] [place] [address] Patient: ALYX MENDEZ Visit ID: [id number] 56y, F Weight: 81.6 kg Height/Length: 62 in BMI: 32.9 ALLERGIES: Penicillins Start 19:57 10/18/2016 Jason Joel R.N., Continued Upon Transfer 23:00 10/18/2016 Jason Joel R.N. Medication Administered: IV NS (SALINE), Dose: IV Fluids over 60 minute(s), Rate: 1000 mL/hr, Dispensed: 1000 mL bag, Site: #1 left forearm. Medication Ordered: IV NS : initial bolus 1000 mL (1000 mL/hr), then 100 mL/hr for X1 (NOW); Jason. Given 20:22 10/18/2016 Jason Joel R.N. Medication Administered: MORPHINE [IVP], Dose: 4 mg IVP over 2 minute(s), Site: #1 left forearm. Medication Ordered: Morphine IV 4 mg (HIGH ALERT MEDICATION, NOW). Given :10/18/2016 Jason Joel R.N. Medication Administered: Tamiflu *, Dose: 75 mg * PO. Medication Ordered: - (tamiflu 75 mg po). Given :28 10/18/2016 Jason Joel R.N. Medication Administered: Lovenox *, Dose: 81mg * Subcutaneous. Medication Ordered: Lovenox Subcut 80 mg (HIGH ALERT MEDICATION, NOW). Given 23:05 10/18/2016 Jason Joel R.N. Medication Administered: MORPHINE [IVP], Dose: 4 mg IVP over 2 minute(s), Site: #1. Medication Ordered: Morphine IV 4 mg (HIGH ALERT MEDICATION, NOW).
--- NOTE | 2016-10-18 23:45 | ED MED RECONCILIATION SUMMARY ---
Patient: ALYX MENDEZ Medication Reconciliation Report [facility] VisitID: [id number] [address] [place] [address] 56y, F Registration Date/Time: 10/18/2016 Weight: 81.6 kg Height/Length: 62 in. BMI: 32.9 ALLERGIES: Penicillins The patient's Home Medications are listed below: THE FOLLOWING MEDICATIONS NEED TO BE RECONCILED: Amitriptyline HCl Oral 25 mg, at bedtime Aspirin Oral (81 mg) 1 tablet, daily FLUoxetine HCl Oral 40 mg, daily Lyrica Oral 300 mg, 2 x daily Metoprolol Succinate ER Oral 25 mg, daily Nitroglycerin Translingual 0.4 mg, PRN OxyCODONE HCl Oral 10 mg Simvastatin Oral 40 mg, at bedtime TiZANidine HCl Oral 4 mg The source(s) of the original Home Medication information: Not obtained. The following Medications were given to the patient in the Emergency Department: IV NS IV Fluids bolus 0, then 1000 mL/hr, administered: 10/18/2016 7:57:00 PM Morphine [IVP] IVP 4 mg, administered: 10/18/2016 8:22:00 PM Tamiflu PO 75 mg, administered: 10/18/2016 10:23:00 PM Lovenox Subcutaneous 81mg, administered: 10/18/2016 10:28:00 PM Morphine [IVP] IVP 4 mg, administered: 10/18/2016 11:05:00 PM The following Medications were prescribed to the patient: None.
--- NOTE | 2016-10-18 23:45 | ED MAR SUMMARY ---
..... Medication Administration Record [facility] [address] [place] [address] Patient: ALYX MENDEZ Visit ID: [id number] 56y, F Weight: 81.6 kg Height/Length: 62 in BMI: 32.9 ALLERGIES: Penicillins Start 19:57 10/18/2016 Jason Joel R.N., Continued Upon Transfer 23:00 10/18/2016 Jason Jeol R.N. Medication Administered: IV NS (SALINE), Dose: IV Fluids over 60 minute(s), Rate: 1000 mL/hr, Dispensed: 1000 mL bag, Site: #1 left forearm. Medication Ordered: IV NS : initial bolus 1000 mL (1000 mL/hr), then 100 mL/hr for X1 (NOW); Jason. Given 20:22 10/18/2016 Jason Joel R.N. Medication Administered: MORPHINE [IVP], Dose: 4 mg IVP over 2 minute(s), Site: #1 left forearm. Medication Ordered: Morphine IV 4 mg (HIGH ALERT MEDICATION, NOW). Given :10/18/2016 Jason Joel R.N. Medication Administered: Tamiflu *, Dose: 75 mg * PO. Medication Ordered: - (tamiflu 75 mg po). Given :28 10/18/2016 Jason Joel R.N. Medication Administered: Lovenox *, Dose: 81mg * Subcutaneous. Medication Ordered: Lovenox Subcut 80 mg (HIGH ALERT MEDICATION, NOW). Given 23:05 10/18/2016 Jason Joel R.N. Medication Administered: MORPHINE [IVP], Dose: 4 mg IVP over 2 minute(s), Site: #1. Medication Ordered: Morphine IV 4 mg (HIGH ALERT MEDICATION, NOW).
== END 2016-10-18 23:00 | disposition short-term general hospital (02) ==
LOC: ED SRH 18:04
DX: J10.1 Influenza due to other identified influenza virus with other respiratory manifestations (principal); N17.9 Acute kidney failure, unspecified; I10 Essential (primary) hypertension; E86.0 Dehydration; R79.89 Other specified abnormal findings of blood chemistry; M54.5 Low back pain; S20.20XA Contusion of thorax, unspecified, initial encounter; W10.9XXA Fall (on) (from) unspecified stairs and steps, initial encounter; Y93.9 Activity, unspecified; Y92.9 Unspecified place or not applicable
CPT/HCPCS: 90074; 90100; 90616; 90617; 91400; 91556; 92031; 92610; 92720; 93004; 94001; 94060; 95059